=== PATIENT | male | born 1985 | race Caucasian/White ===

== ENCOUNTER 2017-03-02 03:40 | Emergency (ER) | payer MEDICAID ==
[~2017-03-02] VITALS: Ht 170.2 cm; Wt 91.5 kg
[2017-03-02 03:48] VITALS: Ht 170.2 cm; Wt 91.5 kg
[2017-03-02] MEDS ORDERED: ACET/BUTAL/CAFF TAB PO ONE (05:00)
--- NOTE | 2017-03-02 05:12 | ERD ---
ER Documentation Chief Complaint Date/Time DATE: 03/02/17 TIME: 05:08 Chief Complaint on and off headache x 5 months, worse today (EVA COOMBS NP) HPI 31-year-old male presents to emergency department for complaints of headache on and off that started 5 months ago, worse tonight. Patient describes the headache as throbbing pain, 8/10 scale, is better after taking ibuprofen. Patient denies any head injury. Patient denies any numbness or tingling. Patient denies any fever or chills. Patient denies any numbness or tingling. Patient denies any blurry vision. (EVA COOMBS NP) ROS All systems reviewed and are negative except as per history of present illness. (EVA COOMBS NP) Medications Home Meds Active Scripts Ewwezfiwlhvwo-Eunizgkniy-Idaxkskl-Codeine* (Fioricet w/Codeine*) [id number] -30MG Cap, 1 CAP PO Q4H Y for PAIN LEVEL 1-5, #20 CAP Prov:EVA COOMBS NP 03/02/17 Reported Medications [none] Unknown Strength No Conflict Check 03/02/17 Allergies Allergies: Coded Allergies: No Known Drug Allergies (Verified Allergy, Unknown, 03/02/17) Physical Exam Vitals Vital Signs Date Time Temp Pulse Resp B/P Pulse Ox O2 Delivery O2 Flow Rate FiO2 03/02/17 03:48 98.6 52 20 137/86 98 (SUSANA FAUSTIN PA-C) Physical Exam Const: [] Head: Atraumatic Eyes: Normal Conjunctiva ENT: Normal External Ears, Nose and Mouth. Neck: Full range of motion..~ No meningismus. Resp: Clear to auscultation bilaterally Cardio: Regular rate and rhythm, no murmurs Abd: Soft, non tender, non distended. Normal bowel sounds Skin: No petechiae or rashes Back: No midline or flank tenderness Ext: No cyanosis, or edema Neur: Awake and alert Psych: Normal Mood and Affect (EVA COOMBS NP) Results 24 hrs Current Medications Medications (Trade) Dose Ordered Sig/Melissa Route PRN Reason Start Time Stop Time Status Last Admin Dose Admin Acetaminophen/ Butalbital/ Caffeine (Fioricet) 1 tab ONCE ONCE PO 03/02/17 05:00 03/02/17 05:01 DC 03/02/17 05:29 DIAGNOSTIC IMAGING REPORT Patient: ADAN COREAS : 1985 Age: 31 Sex: M MR #: [id number] DOS: 03/02/17 0449 Ordering MD: EVA COOMBS NP Location: [facility] Room/Bed: PROCEDURE: CT BRAIN WITHOUT CONTRAST CLINICAL INDICATION: 31-year-old male with headaches. TECHNIQUE: The study was performed utilizing a [employer] VCT 64-slice CT scanner. Direct axial sections were obtained from the foramen magnum to the vertex without the use of intravenous contrast material. Sagittal and coronal reformations were obtained. One or more the following dose reduction techniques were utilized: automated exposure control, adjustment of the mA and/or kV according to patient's size or use of iterative reconstruction technique. The images were viewed on a PACS workstation. CTD/vol = 45.0 mGy; Total Exam DLP = 720.2 mGy-cm. COMPARISON: None. FINDINGS: The ventricles have a normal size, shape and position. There is no evidence for mass effect or midline shift. There are no intracranial areas of abnormal attenuation. There is no evidence for acute intra or extra-axial blood. The bony calvarium is intact. There is opacification of right anterior ethmoid air cells. There is mild mucosal thickening within the right frontal sinus. No air- fluid levels are noted. There is minimal polypoid mucosal thickening within the maxillary sinuses. The mastoid air cells are without significant soft tissue. IMPRESSION: 1. The intracranial contents are unremarkable on this noncontrast CT scan of the brain. 2. Opacified right anterior ethmoid air cells with mild mucosal thickening within the right frontal sinus. .Kanu Mai MD, Date Time Electronically viewed and signed by .Kanu Mai MD, MD on 03/02/2017 06:17 .M/ CC: EVA COOMBS NP (SUSANA FAUSTIN PA-C) Results 24 hrs Patient was given medication for pain here in emergency department, after treatment, patient verbalized feeling much better. Patient's pain is improved. (EAV COOMBS NP) Procedures/MDM Medical Decision Making: Patient symptoms are consistent with migraine headache , possible tension headache. There is low suspicion for neurological emergencies at this time since patients neurologic exam is normal. Patient did not have any altered level consciousness, vomiting, changes in balance or memory and did not have any head injury. Patients CT scan of the head does not show any neurological emergencies at this time. Rx: Fioricet with codeine, Zofran Dispostion: Home. Stable Disclaimer: Inadvertent spelling and grammatical errors are likely due to EHR/ dictation software use and do not reflect on the overall quality of patient care. Also, please note that the electronic time recorded on this note does not necessarily reflect the actual time of the patient encounter. (EVA COOMBS NP) This patient was signed out to me by Eva Jane NP pending results of the CT scan Head CT scan noncontrast shows intracranial contents are unremarkable. There is no evidence for mass-effect or midline shift. There is opacification of the right anterior ethmoid cells. There is mild mucosal thickening in the right frontal sinus. There are no air-fluid levels. He was discharged home with medication prescribed by Eva Jane NP (SUSANA FAUSTIN PA-C) Departure Diagnosis: Primary Impression: Headache Headache type: unspecified Headache chronicity pattern: acute headache Intractability: not intractable Qualified Code: R51 - Acute nonintractable headache, unspecified headache type Condition: Stable Patient Instructions: Self-Care for Headaches EVA COOMBS NP Mar 02, 2017 05:12 SUSANA FAUSTIN PA-C Mar 02, 2017 06:43
[2017-03-02] MEDS ORDERED: ABCC1C PO (05:34)
--- NOTE | 2017-03-02 06:17 | RADRPT ---
PROCEDURE: CT BRAIN WITHOUT CONTRAST CLINICAL INDICATION: 31-year-old male with headaches. TECHNIQUE: The study was performed utilizing a [employer] VCT 64-slice CT scanner. Direct axia l sections were obtained from the foramen magnum to the vertex without the use of intravenous contra st material. Sagittal and coronal reformations were obtained. One or more the following dose reduct ion techniques were utilized: automated exposure control, adjustment of the mA and/or kV according t o patient's size or use of iterative reconstruction technique. The images were viewed on a PACS [employer]. CTD/vol = 45.0 mGy; Total Exam DLP = 720.2 mGy-cm. COMPARISON: None. FINDINGS: The ventricles have a normal size, shape and position. There is no evidence for mass effect or midl ine shift. There are no intracranial areas of abnormal attenuation. There is no evidence for acute intra or extra-axial blood. The bony calvarium is intact. There is opacification of right anterior ethmoid air cells. There is mild mucosal thickening within the right frontal sinus. No air-fluid lev els are noted. There is minimal polypoid mucosal thickening within the maxillary sinuses. The mastoi d air cells are without significant soft tissue. IMPRESSION: 1. The intracranial contents are unremarkable on this noncontrast CT scan of the brain. 2. Opacified right anterior ethmoid air cells with mild mucosal thickening within the right frontal sinus. .Kanu Mai MD, Date Time Electronically viewed and signed by .Kanu Mai MD, on 03/02/2017 06:17 .M/
[2017-03-02 07:05] VITALS: BP 130/77; PULSE 57; RESP 20
== END 2017-03-02 07:38 | disposition home or self-care (01) ==
LOC: FTE 03:40
DX: R51 Headache (principal)
CPT/HCPCS: 70450; Z7502; Z7610